=== PATIENT | male | born 1995 | race Caucasian/White ===

== ENCOUNTER 2016-04-20 17:27 | Emergency (ER) | payer SELFPAY ==
[~2016-04-20] VITALS: Ht 182.9 cm; Wt 66.7 kg
[~2016-04-20 17:27] MED LIST: NOHOMEMEDS
[2016-04-20] MEDS ORDERED: PREDNISONE10 MG PO (22:14)
[2016-04-20] MEDS ORDERED: ULTRAM50 MG PO (22:14)
[2016-04-20] MEDS ORDERED: FLEXERIL10 MG PO (22:41)
[2016-04-20 22:42] VITALS: BP 125/79
== END 2016-04-20 22:43 | disposition home or self-care (01) ==
LOC: EME 17:27 → EXP 17:27
DX: M54.12 Radiculopathy, cervical region (principal); M62.838 Other muscle spasm
CPT/HCPCS: 72040; 99281; 99284; J7512